=== PATIENT | male | born 1960 | race Caucasian/White ===

== ENCOUNTER 2016-11-15 19:42 | Emergency (ER) | payer OTHER ==
[~2016-11-15] VITALS: Ht 162.6 cm; Wt 62.5 kg
[2016-11-15 19:50] VITALS: Ht 162.6 cm; Wt 62.5 kg
[2016-11-15] MEDS ORDERED: TR1B60 TOP (20:15)
[2016-11-15] MEDS ORDERED: DIPH25CA6 PO (20:15)
--- NOTE | 2016-11-15 20:23 | ERD ---
ER Documentation Chief Complaint Date/Time DATE: 11/15/16 TIME: 20:21 Chief Complaint scaterred body rashes w/ itchiness x 3 weeks HPI Patient is a 56-year-old male who presents with an itchy rash that he has had on his bilateral hands and left rib cage and left thigh for 3 weeks. He went to his primary care doctor and they gave him nystatin and triamcinolone cream as a told him it was most likely fungal and he states that that originally helped but never fully went away. He states it is very itchy. No fever. No bleeding or drainage. ROS All systems reviewed and are negative except as per history of present illness. Medications Home Meds Active Scripts Diphenhydramine Hcl* (Diphenhydramine Hcl*) 25 Mg Capsule, 25 MG PO Q6 Y for ITCHING, #30 CAP Prov:ANSLEY GARCIA PA-C 11/15/16 Triamcinolone Acetonide (Triamcinolone Acetonide) 0.1% - 60 Ml Lotion, 1 APPLIC TOP BID, #1 BOTTLE Prov:ANSLEY GARCIA PA-C 11/15/16 Allergies Allergies: Coded Allergies: No Known Allergy (Unverified , 11/15/16) PMhx/Soc History of Surgery: No Anesthesia Reaction: No Hx Neurological Disorder: No Hx Respiratory Disorders: No Hx Cardiac Disorders: No Hx Psychiatric Problems: No Hx Miscellaneous Medical Probl: No Hx Alcohol Use: No Hx Substance Use: No Hx Tobacco Use: No Smoking Status: Never smoker FmHx Family History: diabetes Physical Exam Vitals Vital Signs Date Time Temp Pulse Resp B/P Pulse Ox O2 Delivery O2 Flow Rate FiO2 11/15/16 19:50 96.5 96 20 119/87 99 Physical Exam Const: [] Head: Atraumatic Eyes: Normal Conjunctiva ENT: Normal External Ears, Nose and Mouth. Neck: Full range of motion..~ No meningismus. Resp: Clear to auscultation bilaterally Cardio: Regular rate and rhythm, no murmurs Abd: Soft, non tender, Skin: Macular papular dry thickened skin around the bilateral hands on the dorsal surface as well as on the left lateral chest wall Procedures/MDM 56-year-old male presents with a rash. He was told it was fungal however to me looks more like eczema. I gave a prescription for Benadryl and triamcinolone cream. Patients is alert, oriented, well appearing, and in no distress with normal vital signs. There is no fever, tachycardia, or tachypnea. No evidence of any life-threatening rash. Patient counseled regarding my diagnostic impression and care plan. Prior to discharge all questions answered. Pt agrees with treatment plan and understands strict return precautions. Pt is instructed to follow up with primary care provider within 24-48 hours. Precautionary instructions provided including instructions to return to the ER if not improving or for any worsening or changing symptoms or concerns. Departure Diagnosis: Primary Impression: Rash Condition: Stable Patient Instructions: Self-Care for Skin Rashes Additional Instructions: Llame al doctor MAANA y feng fly AGUSTIN PARA DENTRO DE 1-2 VAZQUEZ.Dgale a la secretaria que nosotros le instruimos hacer esta agustin.Avise o llame si fraser condicin se empeora antes de la agustin. Regresa aqui si peor o no mejor. ANSLEY GARCIA PA-C Nov 15, 2016 20:23
== END 2016-11-15 21:04 | disposition home or self-care (01) ==
LOC: FTE 19:42
DX: R21 Rash and other nonspecific skin eruption (principal)
CPT/HCPCS: 99283